=== PATIENT | female | born 1950 | race Caucasian/White ===

== ENCOUNTER → 2017-05-03 | Outpatient (CLI) | payer MEDICARE, OTHER ==
[2017-05-03 14:17] LABS: ABSOLUTE BASOPHILS # (AUTO) 0.1 10^3/uL (0.0-0.2); ABSOLUTE EOSINOPHILS # (AUTO) 0.2 10^3/uL (0.0-0.6); ABSOLUTE MONOCYTES (AUTO) 0.5 10^3/uL (0.1-1.4); ABSOLUTE NEUT (AUTO) 4.2 10^3/uL (1.7-8.2); BASOPHILS % (AUTO) 0.8 % (0-2); EOSINOPHILS % (AUTO) 2.9 % (0-6); HEMATOCRIT 35.8 % (36.0-47.0); HEMOGLOBIN 11.7 g/dL (12.0-15.5); HGB HCT DIFFERENCE -0.7; LYMPHOCYTES % (AUTO) 28.3 % (13-45); MEAN CORPUSCULAR HEMOGLOBIN 24.7 pg (27.0-33.4); MEAN CORPUSCULAR HGB CONC 32.8 g/dL (32.0-36.0); MEAN CORPUSCULAR VOLUME 75 fl (80-97); MONOCYTES % (AUTO) 7.8 % (3-13); RED BLOOD COUNT 4.76 10^6/uL (3.72-5.28); RED CELL DISTRIBUTION WIDTH 15.4 % (11.5-14.0); SEGMENTED NEUTROPHILS % (AUTO) 60.2 % (42-78)
[2017-05-03 14:19] LABS: APPEARANCE,URINE CLEAR; BILIRUBIN,URINE NEGATIVE (NEGATIVE); GLUCOSE, URINE NEGATIVE (NEGATIVE); KETONES,URINE NEGATIVE (NEGATIVE); LEUKOCYTE ESTERASE,URINE NEGATIVE (NEGATIVE); NITRITE,URINE NEGATIVE (NEGATIVE); PROTEIN,URINE NEGATIVE (NEGATIVE); URINE SPECIFIC GRAVITY 1.004; UROBILINOGEN,URINE NEGATIVE mg/dL (<2.0)
[2017-05-03 14:34] LABS: ALANINE AMINOTRANSFERASE 45 U/L (9-52); ALBUMIN 4.8 g/dL (3.5-5.0); ALKALINE PHOSPHATASE 91 U/L (38-126); ANION GAP 14 (5-19); ASPARTATE AMINO TRANSFERASE 26 U/L (14-36); BILIRUBIN,DIRECT 0.3 mg/dL (0.0-0.4); BILIRUBIN,TOTAL 0.4 mg/dL (0.2-1.3); BLOOD UREA NITROGEN 14 mg/dL (7-20); CALCIUM 9.7 mg/dL (8.4-10.2); CARBON DIOXIDE 25 mmol/L (22-30); CHLORIDE 105 mmol/L (98-107); GLUCOSE 117 mg/dL (75-110); POTASSIUM 4.6 mmol/L (3.6-5.0); SODIUM 143.9 mmol/L (137-145); TOTAL PROTEIN 8.5 g/dL (6.3-8.2)
[2017-05-03 15:14] LABS: ADD HIVPANEL? NO; HIV (1 AND 2) ANTIBODY NEGATIVE (NEGATIVE)
[2017-05-05 14:40] LABS: HGB SOLUBILITY RESULT Negative (Negative); IMMUNOGLOBULIN A 263 mg/dL (87-352); IMMUNOGLOBULIN G 1060 mg/dL (700-1600)
[2017-05-05 14:56] LABS: HGB A 98.3 % (94.0-98.0); HGB A2 1.7 % (0.7-3.1); IMMUNOGLOBULIN M 264 mg/dL (26-217)
[2017-05-06 14:41] LABS: ALPHA-1-GLOBULIN 0.2 g/dL (0.0-0.4); ALPHA-2-GLOBULIN 3 0.8 g/dL (0.4-1.0); BETA GLOBULIN 1.6 g/dL (0.7-1.3); GLOBULIN TTL 3.9 g/dL (2.2-3.9); IMMUNOGLOBULIN A 262 mg/dL (87-352); IMMUNOGLOBULIN G 1083 mg/dL (700-1600); IMMUNOGLOBULIN M 261 mg/dL (26-217); MONOCLONAL-SPIKE Not Observed g/dL (Not Observed); PROTEIN TOTAL SERUM 7.9 g/dL (6.0-8.5)
== END ==
LOC: OD 13:11
PROVIDERS: ATTEND Internal Medicine Nephrology
DX: D64.9 Anemia, unspecified (principal); E78.2 Mixed hyperlipidemia
CPT/HCPCS: 36415; 80053; 81001; 82784; 83020; 84443; 85025; 86320; 86701

== ENCOUNTER 2018-05-24 15:07 | Observation (INO) | payer MEDICARE, OTHER ==
[2018-05-24] MEDS ORDERED: KETOROLAC TROMETHAMINE INJ/PF 30 MG/1 ML SDV IV ONE (15:30)
[2018-05-24] MEDS ORDERED: ONDANSETRON HCL INJ/PF 4 MG/2 ML SDV IV ONE ×2 (15:30→19:26)
--- NOTE | 2018-05-24 15:32 | ER Document Report ---
ED Medical Screen (RME) - General Chief Complaint: Abdominal Pain >50 Stated Complaint: pain in right side Time Seen by Provider: 05/24/18 15:23 Notes: 68 years old male with a history of kidney stones presents today with sudden onset of right upper quadrant abdominal pain since 8:00. A total of 5 episodes of sharp pain C noted. Associated with nausea no vomiting. Pain also radiates to the back. On examination sharp tenderness over the right upper quadrant noted TRAVEL OUTSIDE OF THE [place] IN LAST 30 DAYS: No - Related Data Allergies/Adverse Reactions: No Known Allergies Allergy (Unverified 05/24/18 15:08) Past Medical History - Social History Frequency of alcohol use: None Drug Abuse: None Endocrine Medical History: Reports: Hx Diabetes Mellitus Type 2 Renal/ Medical History: Denies: Hx Peritoneal Dialysis Past Surgical History: Reports: Hx Hysterectomy Physical Exam - Vital signs Vitals: Temp Pulse Resp BP Pulse Ox 98.9 F 100 16 150/78 H 99 05/24/18 15:11 05/24/18 15:11 05/24/18 15:11 05/24/18 15:11 05/24/18 15:11 Course - Vital Signs Vital signs: Temp Pulse Resp BP Pulse Ox 98.9 F 100 16 150/78 H 99 05/24/18 15:11 05/24/18 15:11 05/24/18 15:11 05/24/18 15:11 05/24/18 15:11 Doctor's Discharge - Discharge Referrals: Paulette MAHMOOD MD [Primary Care Provider] - Follow up as needed
[2018-05-24 16:21] LABS: ABSOLUTE BASOPHILS # (AUTO) 0.1 10^3/uL (0.0-0.2); ABSOLUTE EOSINOPHILS # (AUTO) 0.1 10^3/uL (0.0-0.6); ABSOLUTE LYMPHOCYTES (AUTO) 1.6 10^3/uL (0.5-4.7); ABSOLUTE MONOCYTES (AUTO) 0.4 10^3/uL (0.1-1.4); ABSOLUTE NEUT (AUTO) 5.8 10^3/uL (1.7-8.2); BASOPHILS % (AUTO) 1.4 % (0-2); EOSINOPHILS % (AUTO) 0.9 % (0-6); HEMATOCRIT 41.4 % (36.0-47.0); HEMOGLOBIN 13.8 g/dL (12.0-15.5); LYMPHOCYTES % (AUTO) 19.9 % (13-45); MEAN CORPUSCULAR HGB CONC 33.4 g/dL (32.0-36.0); MEAN CORPUSCULAR VOLUME 84 fl (80-97); MONOCYTES % (AUTO) 4.6 % (3-13); PLATELET COUNT 232 10^3/uL (150-450); RED BLOOD COUNT 4.94 10^6/uL (3.72-5.28); RED CELL DISTRIBUTION WIDTH 14.8 % (11.5-14.0); SEGMENTED NEUTROPHILS % (AUTO) 73.2 % (42-78); TOTAL CELLS COUNTED % (AUTO) 100 %
[2018-05-24 16:38] LABS: ALANINE AMINOTRANSFERASE 39 U/L (9-52); ALKALINE PHOSPHATASE 77 U/L (38-126); ANION GAP 15 (5-19); ASPARTATE AMINO TRANSFERASE 34 U/L (14-36); BILIRUBIN,DIRECT 0.3 mg/dL (0.0-0.4); BILIRUBIN,TOTAL 0.7 mg/dL (0.2-1.3); BLOOD UREA NITROGEN 14 mg/dL (7-20); CALCIUM 10.1 mg/dL (8.4-10.2); CARBON DIOXIDE 23 mmol/L (22-30); CHLORIDE 104 mmol/L (98-107); GLUCOSE 156 mg/dL (75-110); LIPASE 139.9 U/L (23-300); POTASSIUM 4.6 mmol/L (3.6-5.0); SODIUM 142.3 mmol/L (137-145); TOTAL PROTEIN 8.9 g/dL (6.3-8.2)
--- NOTE | 2018-05-24 16:46 | RADIOLOGY REPORT (SQ) ---
EXAM DESCRIPTION: U/S ABDOMEN LIMITED W/O DOP COMPLETED DATE/TIME: 05/24/2018 4:26 pm REASON FOR STUDY: Right upper quadrant pain COMPARISON: None. TECHNIQUE: Dynamic and static grayscale images acquired of the abdomen and recorded on PACS. Peter bella selected color Doppler and spectral images recorded. LIMITATIONS: None. FINDINGS: PANCREAS: No masses. Visualized pancreatic duct normal caliber. LIVER: No masses. Echotexture normal. LIVER VASCULATURE: Normal directional flow of the main portal vein and hepatic veins. GALLBLADDER: Sludge is small stones. Trace of pericholecystic fluid. ULTRASOUND-DETECTED HIGUERA'S SIGN: Positive. INTRAHEPATIC DUCTS AND COMMON DUCT: No dilated ducts. Question sludge in the common bile duct. INFERIOR VENA CAVA: Normal flow. AORTA: No aneurysm. RIGHT KIDNEY: Normal size. Normal echogenicity. No solid or suspicious masses. No hydronephrosis. No calcifications. PERITONEAL AND RIGHT PLEURAL SPACE: No ascites or effusions. OTHER: No other significant findings. IMPRESSION: Sludge in the gallbladder with a positive Higuera's sign and pericholecystic fluid. Poss ible sludge in the common bile duct. Strongly suspect cholecystitis. TECHNICAL DOCUMENTATION: JOB ID: [id number] [employer]- All Rights Reserved Reading location - IP/workstation name: [email or web address]
[2018-05-24] MEDS ORDERED: CEFOXITIN INJ 1 GM VIAL IV ONE (18:14)
[2018-05-24] MEDS ORDERED: RINGERS SOLUTION,LACTATED 1,000 ML IV ONE (18:14)
--- NOTE | 2018-05-24 18:15 | ER Document Report ---
ED GI/ - General Chief Complaint: Abdominal Pain >50 Stated Complaint: pain in right side Time Seen by Provider: 05/24/18 15:23 Notes: This is a pleasant 68-year-old female to the emergency department for evaluation of right upper quadrant pain times 5 hours. Patient woke up this morning. Was scheduled to have a bladder stone removed by Dr. Victoria at [facility]. Had been fasting. Started having some worsening pain in the right upper quadrant. Called her surgeon who advised her to get this checked out at the local ER. Patient came here. Still having pain in the right upper quadrant. Very tender to touch. Radiates around to the right flank. No fever but did state that she had some chills and nausea with vomiting. TRAVEL OUTSIDE OF THE [place] IN LAST 30 DAYS: No - HPI Patient complains to provider of: Abdominal pain Timing/Duration: Gradual Quality of pain: Achy Severity at maximum: Moderate Severity in ED: Moderate Pain Level: 3 Vaginal bleeding (Compared to normal period): None - Related Data Allergies/Adverse Reactions: No Known Allergies Allergy (Unverified 05/24/18 15:08) Past Medical History - General Information source: Patient - Social History Smoking Status: Never Smoker Frequency of alcohol use: None Drug Abuse: None Lives with: Alone Family History: Reviewed & Not Pertinent Patient has suicidal ideation: No Patient has homicidal ideation: No Endocrine Medical History: Reports: Hx Diabetes Mellitus Type 2 Renal/ Medical History: Denies: Hx Peritoneal Dialysis Past Surgical History: Reports: Hx Hysterectomy Review of Systems - Review of Systems Notes: Constitutional: denies: Chills, Diaphoresis, Fever, Malaise, Weakness EENT: denies: Eye discharge, Blurred vision, Tearing, Double vision, Nose congestion, Nose discharge, Throat swelling, Mouth pain Cardiovascular: denies: Palpitations, Heart racing, Orthopnea, Dyspnea, Chest pain Respiratory: denies: Cough, Hurts to breathe, Wheezing, Shortness of breath Gastrointestinal: Complaining of pain in the right upper quadrant, nausea. No vomiting. No change in stools. No diarrhea or constipation. Genitourinary: denies: Burning, Dysuria, Discharge, Frequency, Flank pain, Hematuria Musculoskeletal: denies: Joint pain, Joint swelling, Muscle pain, Muscle stiffness, back pain Hematologic/Lymphatic: denies: Anemia, Easy bleeding, Easy bruising, Blood clots Neurological/Psychological: denies: Confusion, Dementia, Depression, Loss of consciousness Skin: No lesions, no masses, no skin breakdown, no abscesses Physical Exam - Vital signs Vitals: Temp Pulse Resp BP Pulse Ox 98.9 F 100 16 150/78 H 99 05/24/18 15:11 05/24/18 15:11 05/24/18 15:11 05/24/18 15:11 05/24/18 15:11 Interpretation: Normal - General General appearance: Appears well, Alert - HEENT Head: Normocephalic, Atraumatic Eyes: Normal Pupils: PERRL - Respiratory Respiratory status: No respiratory distress Chest status: Nontender Breath sounds: Normal Chest palpation: Normal - Cardiovascular Rhythm: Regular Heart sounds: Normal auscultation Murmur: No - Abdominal Inspection: Normal Distension: No distension Bowel sounds: Normal Tenderness: Tender - Tender to palpation in the right upper quadrant with guarding, Fournier's sign Organomegaly: No organomegaly - Back Back: Normal, Nontender - Extremities General upper extremity: Normal inspection, Nontender, Normal color, Normal ROM , Normal temperature General lower extremity: Normal inspection, Nontender, Normal color, Normal ROM , Normal temperature, Normal weight bearing. No: Kirsten's sign - Neurological Neuro grossly intact: Yes Cognition: Normal Orientation: AAOx4 Beatris Coma Scale Eye Opening: Spontaneous [place] Coma Scale Verbal: Oriented Beatris Coma Scale Motor: Obeys Commands [place] Coma Scale Total: 15 Speech: Normal Motor strength normal: LUE, RUE, LLE, RLE Sensory: Normal - Psychological Associated symptoms: Normal affect, Normal mood - Skin Skin Temperature: Warm Skin Moisture: Dry Skin Color: Normal Course - Re-evaluation Re-evalutation: 05/24/18 18:13 Ultrasound consistent with acute cholecystitis. Labs are fairly unremarkable. Consulted with Dr. Victoria at [facility] he does not feel comfortable doing his urological procedure until her gallbladder is taking care of. Will consult with our surgeon here shortly. Will start on Mefoxin at this time. 05/24/18 19:25 Surgeon has seen. Patient has acute cholecystitis. Started on antibiotics and pain medication. Will sit on her overnight and then operate on her in the morning. - Vital Signs Vital signs: Temp Pulse Resp BP Pulse Ox 98.9 F 100 16 150/78 H 99 05/24/18 15:11 05/24/18 15:11 05/24/18 15:11 05/24/18 15:11 05/24/18 15:11 - Laboratory Result Diagrams: 05/24/18 15:51 05/24/18 15:51 Laboratory results interpreted by me: 05/24/18 05/24/18 15:51 15:51 RDW 14.8 H Glucose 156 H Total Protein 8.9 H Discharge - Discharge Clinical Impression: Acute cholecystitis Condition: Good Disposition: ADMITTED INPATIENT Admitting Provider: Surgicalist Connor Meehan
[2018-05-24] MEDS ORDERED: MORPHINE SULFATE 10 MG/ML INJ IV ONE (19:26)
[2018-05-24] MEDS ORDERED: ONDANSETRON HCL INJ/PF 4 MG/2 ML SDV IV PRN (19:29)
[2018-05-24] MEDS ORDERED: GLUCAGON,HUMAN RECOMB 1 MG INJ SUBCUT PRN (19:29)
[2018-05-24] MEDS ORDERED: NORMAL SALINE 1000 ML 1,000 ML IV PRN (19:29)
[2018-05-24] MEDS ORDERED: DEXTROSE 50%-WATER 25 GM/50 ML DISP.SYRIN IV PRN ×4 (19:29→19:37)
[2018-05-24] MEDS ORDERED: DEXTROSE 40% GEL 15 GM TUBE PO PRN ×4 (19:29→19:37)
[2018-05-24] MEDS ORDERED: GLUCAGON,HUMAN RECOMB 1 MG INJ IM PRN (19:37)
[2018-05-24] MEDS ORDERED: INSULIN LISPRO 100 UNIT/ML 3 ML VIAL SUBCUT PRN (19:37)
--- NOTE | 2018-05-24 19:49 | PDOC H&P ---
History of Present Illness Admission Date/PCP: 05/24/18 18:29 Paulette MAHMOOD MD Patient complains of: Right upper quadrant pain, nausea, vomiting. History of Present Illness: ANA HAHN is a 68 year old female with a 1 day history of right upper quadrant pain, nausea, and vomiting. Her pain started this morning, and worsened steadily throughout the day. At its worst her pain was 10 out of 10. Her pain radiates to her right flank and back. At present, her pain is constant and does not length. Pain medication has made it somewhat better. Nothing makes it worse. Patient reports nausea and vomiting several times earlier today. Her nausea has improved after medications were given in the ER. She denies chest pain, shortness of breath, fevers, chills, melena, hematochezia, hematemesis, dizziness, orthostasis, fatigue, malaise, blurry vision, headache. Patient does have diabetes, but she denies a history of heart disease. Past Medical History Cardiac Medical History: Denies: Myocardial Infarction Endocrine Medical History: Reports: Diabetes Mellitus Type 2 Past Surgical History Past Surgical History: Reports: Hysterectomy, Orthopedic Surgery Social History Lives with: Alone Smoking Status: Never Smoker Hx Recreational Drug Use: No Hx Prescription Drug Abuse: No Family History Family History: Reviewed & Not Pertinent Parental Family History Reviewed: Yes Children Family History Reviewed: Yes Sibling(s) Family History Reviewed.: Yes Medication/Allergy Home Medications: Biotin 1,000 mcg PO DAILY 05/24/18 Glipizide [Glipizide Xl] 1 tab PO DAILY 05/24/18 Lisinopril [Prinivil 2.5 mg Tablet] 2.5 mg PO DAILY 05/24/18 Omeprazole [Omeprazole] 1 tab PO DAILY 05/24/18 Rosuvastatin Calcium [Crestor 5 mg Tablet] 5 mg PO DAILY PRN 05/24/18 Sertraline HCl 100 mg PO DAILY 05/24/18 Sitagliptin Phosphate [Januvia 50 mg Tablet] 50 mg PO BID 05/24/18 Allergies/Adverse Reactions: No Known Allergies Allergy (Unverified 05/24/18 15:08) Review of Systems Constitutional: ABSENT: chills, fatigue, fever(s), headache(s), weakness Eyes: ABSENT: visual disturbances Ears: ABSENT: hearing changes Nose, Mouth, and Throat: ABSENT: sore throat Cardiovascular: ABSENT: chest pain, palpitations Respiratory: ABSENT: cough, dyspnea Gastrointestinal: PRESENT: abdominal pain, nausea, vomiting. ABSENT: heartburn , hematemesis, hematochezia, melena Musculoskeletal: PRESENT: back pain Integumentary: ABSENT: pruritus, rash Neurological: ABSENT: confusion, convulsions, numbness, paresthesias, weakness Psychiatric: ABSENT: anxiety, depression Endocrine: ABSENT: cold intolerance, heat intolerance Hematologic/Lymphatic: ABSENT: easy bleeding, easy bruising Physical Exam Vital Signs: Temp Pulse Resp BP Pulse Ox 98.9 F 100 16 150/78 H 99 05/24/18 15:11 05/24/18 15:11 05/24/18 15:11 05/24/18 15:11 05/24/18 15:11 General appearance: PRESENT: mild distress - Abdominal pain Head exam: PRESENT: atraumatic, normocephalic Eye exam: PRESENT: EOMI, PERRLA. ABSENT: scleral icterus Mouth exam: PRESENT: moist, neck supple Teeth exam: ABSENT: poor dentation Neck exam: ABSENT: meningismus, tenderness, thyromegaly, tracheal deviation Respiratory exam: PRESENT: clear to auscultation uday, unlabored. ABSENT: chest wall tenderness, tachypnea, wheezes Cardiovascular exam: PRESENT: RRR Pulses: PRESENT: normal radial pulses Vascular exam: PRESENT: normal capillary refill. ABSENT: pallor GI/Abdominal exam: PRESENT: Fournier's sign, tenderness - Right upper quadrant Rectal exam: PRESENT: deferred Extremities exam: ABSENT: clubbing Musculoskeletal exam: ABSENT: deformity Neurological exam: PRESENT: alert, awake, oriented to person, oriented to place , oriented to time, oriented to situation, CN II-XII grossly intact. ABSENT: motor sensory deficit Psychiatric exam: ABSENT: agitated, anxious, depressed Skin exam: ABSENT: cyanosis, erythema, jaundice Results Impressions: Abdomen Ultrasound 05/24/18 15:30 IMPRESSION: Sludge in the gallbladder with a positive Fournier's sign and pericholecystic fluid. Possible sludge in the common bile duct. Strongly suspect cholecystitis. Assessment & Plan - Diagnosis (1) Acute cholecystitis Is this a current diagnosis for this admission?: Yes - Plan Summary Plan Summary: This is a 68-year-old female with right upper quadrant pain, gallbladder sludge , pericholecystic fluid, and a Fournier sign. I believe the patient is experiencing acute cholecystitis. I have admitted her to the hospital. I will start her on antibiotics. N.p.o. after midnight for possible surgery tomorrow. I have discussed cholecystectomy with the patient, and she is agreeable to the treatment plan. Risks/benefits discussed, informed consent obtained, and all questions answered.
[2018-05-25] MEDS ORDERED: CEFOXITIN INJ 1 GM VIAL ONE (01:25)
[2018-05-25] MEDS: CEFOXITIN SODIUM 2 GM in DEXTROSE 5%-WATER 100 ML IV SCH ×2 (01:56→06:58)
[2018-05-25 05:52] LABS: ALANINE AMINOTRANSFERASE 29 U/L (9-52); ALKALINE PHOSPHATASE 60 U/L (38-126); ANION GAP 12 (5-19); ASPARTATE AMINO TRANSFERASE 23 U/L (14-36); BILIRUBIN,DIRECT 0.2 mg/dL (0.0-0.4); BILIRUBIN,TOTAL 0.5 mg/dL (0.2-1.3); BLOOD UREA NITROGEN 15 mg/dL (7-20); CALCIUM 9.5 mg/dL (8.4-10.2); CARBON DIOXIDE 24 mmol/L (22-30); CHLORIDE 106 mmol/L (98-107); GLUCOSE 102 mg/dL (75-110); POTASSIUM 4.6 mmol/L (3.6-5.0); SODIUM 142.1 mmol/L (137-145); TOTAL PROTEIN 6.9 g/dL (6.3-8.2)
[2018-05-25] MEDS ORDERED: BUPIVACAINE HCL 0.25 % INJ/PF (2.5 MG/1 ML) 30 ML VIAL ONE (09:17)
[2018-05-25] MEDS ORDERED: MIDAZOLAM 2 MG/2 ML INJ ONE (09:26)
[2018-05-25] MEDS ORDERED: FENTANYL CITRATE INJ/PF 250 MCG/5 ML AMPULE ONE (09:26)
[2018-05-25] MEDS ORDERED: EPHEDRINE SULFATE INJ 50 MG/1 ML AMPULE ONE (09:26)
[2018-05-25] MEDS ORDERED: DEXMEDETOMIDINE INJ 80 MCG/20 ML VIAL IV ONE (09:26)
[2018-05-25] MEDS ORDERED: PROPOFOL INJ 200 MG/20 ML VIAL IV ONE (09:27)
[2018-05-25] MEDS ORDERED: ACETAMINOPHEN 1,000 MG/100 ML RTUPB IV ONE (09:27)
--- NOTE | 2018-05-25 09:35 | EKG REPORT ---
SEVERITY:- NORMAL ECG - SINUS RHYTHM : Confirmed by: Rosmery Lima 25-May-2018 09:34:23
--- NOTE | 2018-05-25 09:46 | PDOC PROGRESS REPORT ---
Subjective Progress Note for:: 05/25/18 Subjective:: Feels better. Less abdominal pain. Reason For Visit: CHOLECYSTITIS Physical Exam Vital Signs: Temp Pulse Resp BP Pulse Ox 98.2 F 70 14 113/60 96 05/25/18 08:02 05/25/18 08:02 05/25/18 08:02 05/25/18 08:02 05/25/18 08:02 Intake & Output 05/24/18 05/25/18 05/26/18 06:59 06:59 06:59 Intake Total 360 100 Balance 360 100 Weight 70.6 kg General appearance: PRESENT: no acute distress, cooperative Respiratory exam: PRESENT: clear to auscultation uday Cardiovascular exam: PRESENT: RRR GI/Abdominal exam: PRESENT: other - Soft, nondistended, tender to palpation in the right upper quadrant. Extremities exam: PRESENT: other - No swelling and no tenderness Results Laboratory Results: 05/25/18 04:31 05/25/18 04:31 Sodium 142.1 Potassium 4.6 Chloride 106 Carbon Dioxide 24 Anion Gap 12 BUN 15 Creatinine 0.87 Est GFR ( Amer) > 60 Est GFR (Non-Af Amer) > 60 Glucose 102 Calcium 9.5 Total Bilirubin 0.5 AST 23 ALT 29 Alkaline Phosphatase 60 Total Protein 6.9 Albumin 4.0 Impressions: Abdomen Ultrasound 05/24/18 15:30 IMPRESSION: Sludge in the gallbladder with a positive Fournier's sign and pericholecystic fluid. Possible sludge in the common bile duct. Strongly suspect cholecystitis. Assessment & Plan - Diagnosis (1) Acute cholecystitis Is this a current diagnosis for this admission?: Yes Plan: Symptoms have improved but she is cut off saw tender metal in the right upper quadrant. Diagnosis is still consistent with acute cholecystitis. Will proceed with laparoscopic cholecystectomy. I have discussed with the patient the risk and benefits of the procedure including risk of bile duct injury, intestinal injury , bleeding, infection, postcholecystectomy diarrhea and the possibility of conversion to an open procedure. Patient understands and agrees to proceed.
[2018-05-25] MEDS ORDERED: PROMETHAZINE HCL INJ 25 MG/1 ML VIAL IV PRN ×2 (11:10)
[2018-05-25] MEDS ORDERED: FENTANYL CITRATE INJ/PF 100 MCG/2 ML AMPUL IV PRN ×3 (11:10)
[2018-05-25] MEDS ORDERED: MEPERIDINE HCL/PF INJ 25 MG/1 ML DISP.SYRIN IV PRN (11:10)
[2018-05-25] MEDS ORDERED: MORPHINE SULFATE 10 MG/ML INJ IV PRN (11:10)
[2018-05-25] MEDS ORDERED: DIPHENHYDRAMINE HCL 50 MG/ML VIAL IV PRN (11:10)
[2018-05-25] MEDS ORDERED: OXYCODONE-ACETAMINOPHEN 5-325 MG TABLET PO PRN (11:17)
--- NOTE | 2018-05-25 11:22 | Operative Report ---
Operative Report DATE OF SURGERY: 05/25/18 PREOPERATIVE DIAGNOSIS: Acute cholecystitis POSTOPERATIVE DIAGNOSIS: Acute cholecystitis OPERATION: Laparoscopic cholecystectomy SURGEON: MARIA T LIRIANO ANESTHESIA: GA TISSUE REMOVED OR ALTERED: Gallbladder COMPLICATIONS: None ESTIMATED BLOOD LOSS: Minimal INTRAOPERATIVE FINDINGS: Distended gallbladder with mildly edematous gallbladder wall. PROCEDURE: Informed consent was obtained. Patient was brought to the operating room placed operating table in supine position. After satisfactory induction of general anesthesia, patient's abdomen was prepped and draped in usual sterile fashion. A supraumbilical midline incision was made and dissection carried down to the fascia the peritoneal cavity entered without difficulty. Aguayo trocar was inserted. Pneumoperitoneum produced good patient toleration. 5 mm trocar was placed in the subxiphoid location.Two 5 mm trochars were placed in the right subcostal location. The gallbladder appeared distended and its wall appeared mildly edematous. The gallbladder was grasped and retracted cephalad over the dome of the liver. The infundibulum of the gallbladder was grasped retracted laterally and inferiorly thus exposing calot's triangle. The cystic duct gallbladder junction was clearly identified and the cystic duct was clipped and divided. Cystic artery was likewise taken. The gallbladder was taken off the gallbladder bed using the hook electrocautery technique. The gallbladder was removed with an Endobag through the Aguayo trocar site fascial defect. Hemostasis appeared excellent. All trochars were removed under the direct vision a laparoscope to ensure hemostasis. The Aguayo trocar site fascial defect was closed with interrupted Vicryl sutures. All skin incisions were closed with subcuticular interrupted Monocryl sutures. Marcaine was injected at the port sites. Patient tolerated procedure well no apparent complications and was taken to the recovery area in stable condition.
[2018-05-25] MEDS ORDERED: ONDANSETRON HCL INJ/PF 4 MG/2 ML SDV ONE (13:52)
[2018-05-25] MEDS ORDERED: KETOROLAC TROMETHAMINE 60 MG/2 ML SDV ONE (13:52)
[2018-05-25] MEDS ORDERED: GLYCOPYRROLATE 1 MG/5 ML SYRINGE ONE (13:52)
[2018-05-25] MEDS ORDERED: ROCURONIUM BROMIDE INJ 50 MG/5 ML VIAL IV ONE (13:52)
[2018-05-25] MEDS ORDERED: METOCLOPRAMIDE HCL INJ/PF 10 MG/2 ML SDV ONE (13:52)
[2018-05-25] MEDS ORDERED: SUCCINYLCHOLINE CHLORIDE INJ 200 MG/10 ML VIAL ONE (13:52)
[2018-05-25] MEDS ORDERED: NEOSTIGMINE METHYLSULFATE 10 MG/10 ML VIAL ONE (13:52)
--- NOTE | 2018-05-25 14:03 | PDOC PROGRESS REPORT ---
Subjective Progress Note for:: 05/25/18 Subjective:: Feels well. Feels better than before surgery. Reason For Visit: CHOLECYSTITIS Physical Exam Vital Signs: Temp Pulse Resp BP Pulse Ox 97.4 F 72 12 109/62 97 05/25/18 11:24 05/25/18 12:08 05/25/18 12:08 05/25/18 12:08 05/25/18 12:08 Intake & Output 05/24/18 05/25/18 05/26/18 06:59 06:59 06:59 Intake Total 360 1800 Output Total 5 Balance 360 1795 Weight 70.6 kg General appearance: PRESENT: no acute distress, cooperative Respiratory exam: PRESENT: clear to auscultation uday Cardiovascular exam: PRESENT: RRR GI/Abdominal exam: PRESENT: other - Soft, nondistended, mild appropriate tenderness. Results Laboratory Results: 05/25/18 04:31 05/25/18 04:31 Sodium 142.1 Potassium 4.6 Chloride 106 Carbon Dioxide 24 Anion Gap 12 BUN 15 Creatinine 0.87 Est GFR ( Amer) > 60 Est GFR (Non-Af Amer) > 60 Glucose 102 Calcium 9.5 Total Bilirubin 0.5 AST 23 ALT 29 Alkaline Phosphatase 60 Total Protein 6.9 Albumin 4.0 Impressions: Abdomen Ultrasound 05/24/18 15:30 IMPRESSION: Sludge in the gallbladder with a positive Fournier's sign and pericholecystic fluid. Possible sludge in the common bile duct. Strongly suspect cholecystitis. Assessment & Plan - Diagnosis (1) Acute cholecystitis Is this a current diagnosis for this admission?: Yes Plan: Doing well after laparoscopic cholecystectomy. Will discharge patient home.
--- NOTE | 2018-05-25 14:22 | DISCHARGE SUMMARY E ---
Discharge Summary NAME: ANA HAHN : 1950 AGE: 68Y ADMITTED: 05/24/2018 DISCHARGED: 05/25/2018 DISCHARGE DIAGNOSIS: Acute cholecystitis. PROCEDURE PERFORMED DURING HOSPITALIZATION: Laparoscopic cholecystectomy performed by Dr. Belén Liriano on 05/25/2018. HOSPITAL COURSE: Patient underwent the above-mentioned procedure. She did well postoperatively. She was tolerating a liquid diet well and was feeling better after the surgery. Her exam was good. Patient has now been discharged to home in good condition. She will follow up at [facility] in 2 weeks. She is to call for any problems. She may follow a diabetic diet at home. She is to stay active but avoid strenuous activity. She may resume all of her home medications. ADDITIONAL MEDICATIONS: Percocet 1 p.o. q. 4 hours p.r.n. pain. DICTATING PHYSICIAN: BELÉN LIRIANO M.D. [id number] PHY#: [id number] ID: [id number] JOB#: [id number] ACCT: [id number] cc:BELÉN CASTRO M.D. >
[2018-05-25 15:22] VITALS: BP 116/56
== END 2018-05-25 15:43 | disposition home or self-care (01) ==
LOC: ER 15:07 → INTOOBSV 18:29 → EH 18:29 → 2S 21:03
PROVIDERS: ATTEND Surgery
PROC: 0FT44ZZ Resection of Gallbladder, Percutaneous Endoscopic Approach (ICD-10-PCS; principal; 2018-05-25 10:00)
DX: K81.1 Chronic cholecystitis (principal); E11.9 Type 2 diabetes mellitus without complications; Z90.710 Acquired absence of both cervix and uterus; Z79.899 Other long term (current) drug therapy; Z79.84 Long term (current) use of oral hypoglycemic drugs; Z87.442 Personal history of urinary calculi
CPT/HCPCS: 99285; 96374; 96375; 36415 ×2; 82962 ×2; 83690; 85025; 80053 ×2; 88304 ×2; 76705; 93005; 93010; 47562; G0378 ×2; J2250; J3490 ×3; J0694 ×2; J1885 ×2; J3010; J2765; J2270; J0330; J2405 ×2; J7030; J7120; J2704; J0131; 790

== ENCOUNTER 2018-09-22 19:32 | Observation (INO) | payer MEDICARE, OTHER ==
--- NOTE | 2018-09-22 20:03 | ER Document Report ---
ED Medical Screen (RME) - General Chief Complaint: Altered Mental Status Stated Complaint: ALTERED MENTAL STATUS Time Seen by Provider: 09/22/18 19:58 Primary Care Provider: Paulette MAHMOOD MD [Primary Care Provider] - Follow up as needed Notes: Patient is a 68-year-old female who underwent a cystoscopy today and at [facility]. Daughter reports that she passed out on the way home, when she got home she slept for approximately 6 hours. When she woke up she has been alternating between hallucinating, laughing spells, crying, thinking she is dying. Daughter reports patient is normally very coherent at her baseline. I have greeted and performed a rapid initial assessment of this patient. A comprehensive ED assessment and evaluation of the patient, analysis of test results and completion of the medical decision making process will be conducted by additional ED providers. Dictation of this chart was performed using voice recognition software; therefore, there may be some unintended grammatical err ors. TRAVEL OUTSIDE OF THE [place] IN LAST 30 DAYS: No - Related Data Allergies/Adverse Reactions: No Known Allergies Allergy (Unverified 05/24/18 15:08) Past Medical History - Past Medical History Cardiac Medical History: Denies: Hx Heart Attack Endocrine Medical History: Reports: Hx Diabetes Mellitus Type 2 Renal/ Medical History: Denies: Hx Peritoneal Dialysis Past Surgical History: Reports: Hx Hysterectomy, Hx Orthopedic Surgery Physical Exam - Vital signs Vitals: Temp Pulse Resp BP Pulse Ox 98.6 F 82 20 149/70 H 97 09/22/18 19:39 09/22/18 19:39 09/22/18 19:39 09/22/18 19:39 09/22/18 19:39 Course - Vital Signs Vital signs: Temp Pulse Resp BP Pulse Ox 98.6 F 82 20 149/70 H 97 09/22/18 19:39 09/22/18 19:39 09/22/18 19:39 09/22/18 19:39 09/22/18 19:39 Doctor's Discharge - Discharge Referrals: Paulette MAHMOOD MD [Primary Care Provider] - Follow up as needed
[2018-09-22 21:11] LABS: ABSOLUTE BASOPHILS # (AUTO) 0.1 10^3/uL (0.0-0.2); ABSOLUTE EOSINOPHILS # (AUTO) 0.1 10^3/uL (0.0-0.6); ABSOLUTE MONOCYTES (AUTO) 0.4 10^3/uL (0.1-1.4); ABSOLUTE NEUT (AUTO) 6.2 10^3/uL (1.7-8.2); BASOPHILS % (AUTO) 0.6 % (0-2); EOSINOPHILS % (AUTO) 1.7 % (0-6); HEMOGLOBIN 13.8 g/dL (12.0-15.5); LYMPHOCYTES % (AUTO) 22.7 % (13-45); MEAN CORPUSCULAR HEMOGLOBIN 27.8 pg (27.0-33.4); MEAN CORPUSCULAR HGB CONC 33.6 g/dL (32.0-36.0); MEAN CORPUSCULAR VOLUME 83 fl (80-97); MONOCYTES % (AUTO) 4.8 % (3-13); PLATELET COUNT 222 10^3/uL (150-450); RED BLOOD COUNT 4.97 10^6/uL (3.72-5.28); RED CELL DISTRIBUTION WIDTH 15.4 % (11.5-14.0); SEGMENTED NEUTROPHILS % (AUTO) 70.2 % (42-78); TOTAL CELLS COUNTED % (AUTO) 100 %; WHITE BLOOD COUNT 8.8 10^3/uL (4.0-10.5)
[2018-09-22 21:27] LABS: ALANINE AMINOTRANSFERASE 57 U/L (9-52); ALBUMIN 4.3 g/dL (3.5-5.0); ALKALINE PHOSPHATASE 78 U/L (38-126); ANION GAP 11 (5-19); ASPARTATE AMINO TRANSFERASE 44 U/L (14-36); BILIRUBIN,DIRECT 0.2 mg/dL (0.0-0.4); BILIRUBIN,TOTAL 0.6 mg/dL (0.2-1.3); BLOOD UREA NITROGEN 16 mg/dL (7-20); CARBON DIOXIDE 22 mmol/L (22-30); CHLORIDE 107 mmol/L (98-107); GLUCOSE 111 mg/dL (75-110); POTASSIUM 4.3 mmol/L (3.6-5.0); SODIUM 139.5 mmol/L (137-145); TOTAL PROTEIN 7.9 g/dL (6.3-8.2)
[2018-09-22] MEDS ORDERED: NALOXONE HCL INJ/PF 0.4 MG/1 ML SDV IV ONE (22:50)
[2018-09-22] MEDS ORDERED: NORMAL SALINE 1000 ML 1,000 ML IV ONE (22:53)
--- NOTE | 2018-09-22 22:53 | ER Document Report ---
ED General - General Chief Complaint: Altered Mental Status Stated Complaint: ALTERED MENTAL STATUS Time Seen by Provider: 09/22/18 19:58 Primary Care Provider: Paulette MAHMOOD MD [ACTIVE STAFF] - Follow up as needed TRAVEL OUTSIDE OF THE [place] IN LAST 30 DAYS: No - HPI Notes: Patient is a 68-year-old female that presents to the emergency department for chief complaint of altered mental status. Patient had a cystoscopy performed at [facility] ([facility] at 930 this mornin g. She reports being given Lyrica, Celexa, IV Tylenol, and Versed prior to her procedure. Patient's daughter states she was under general anesthesia for about 45 minutes and was intubated with an LMA. Patient felt very dizzy after the procedure and fell asleep in the car on the way home. Patient's daughter states after getting home she was sleeping for about 6 hours. When she woke her up patient was hallucinating. She was speaking to people not present in the room. She was describing that her head felt like the size of the world. Patient states that she feels like they drugged her. She denies any pain, fever, shortness of breath, nausea/vomiting. Patient denies history of anesthesia reactions in the past. Past Medical History: Reviewed in chart Past Surgical History: Cystoscopy Social History: Denies drugs alcohol and tobacco Family History: Reviewed and noncontributory for presenting illness Allergies: Reviewed, see documented allergy list. REVIEW OF SYSTEMS: CONSTITUTIONAL : No fever No chills No diaphoresis No recent illness EENT: No vision changes No congestion No sore throat CARDIOVASCULAR: No chest pain No palpitations RESPIRATORY: No shortness of breath No cough No difficulty breathing GASTROINTESTINAL: No abdominal pain No nausea No vomiting No diarrhea GENITOURINARY: No dysuria No hematuria No difficulty urinating MUSCULOSKELETAL: No back pain No leg pain No arm pain SKIN: No rashes No lesions LYMPHATIC: No swollen, enlarged glands. NEUROLOGICAL: No lightheadedness No headache No weakness No paresthesias PSYCHIATRIC: No anxiety No depression Hallucinations PHYSICAL EXAMINATION: Vital signs reviewed, nursing noted reviewed. GENERAL: Appears intoxicated, somnolent, well-nourished and in no acute distress. HEAD: Atraumatic, normocephalic. EYES: Eyes appear normal, extraocular movements intact, sclera anicteric, conjunctiva are normal. ENT: nares patent, oropharynx clear without exudates. Moist mucous membranes. NECK: Normal range of motion, supple without lymphadenopathy LUNGS: Breath sounds clear to auscultation bilaterally and equal. No wheezes rales or rhonchi. HEART: Regular rate and rhythm without murmurs ABDOMEN: Soft, nontender, normoactive bowel sounds. No rebound, guarding, or rigidity. No masses appreciated. EXTREMITIES: Nontender, good range of motion, no pitting or edema. NEUROLOGICAL: No focal neurological deficits. Moves all extremities spontaneously Motor and sensory grossly intact on exam. PSYCH: Normal mood, normal affect. SKIN: Warm, Dry, normal turgor, no rashes or lesions noted on exposed skin - Related Data Allergies/Adverse Reactions: No Known Allergies Allergy (Unverified 05/24/18 15:08) Past Medical History - Social History Smoking Status: Never Smoker Chew tobacco use (# tins/day): No Frequency of alcohol use: None Drug Abuse: None Family History: Reviewed & Not Pertinent Patient has suicidal ideation: No Patient has homicidal ideation: No - Past Medical History Cardiac Medical History: Denies: Hx Heart Attack Endocrine Medical History: Reports: Hx Diabetes Mellitus Type 2 Renal/ Medical History: Denies: Hx Peritoneal Dialysis Past Surgical History: Reports: Hx Hysterectomy, Hx Orthopedic Surgery Physical Exam - Vital signs Vitals: Temp Pulse Resp BP Pulse Ox 98.6 F 82 20 149/70 H 97 09/22/18 19:39 09/22/18 19:39 09/22/18 19:39 09/22/18 19:39 09/22/18 19:39 Course - Re-evaluation Re-evalutation: 09/23/18 00:04 Vitals reviewed. Nursing notes reviewed. Patient was somnolent intermittently during my conversation but then would wake up and speak appropriately. She did at times seem to stare off into the distance. She was very emotionally labile. Patient had episodes of crying and then shortly after was laughing hysterically. After Narcan her symptoms were unchanged. Patient's tox screen is positive for benzos and opiates consistent with her recent procedure. Her alcohol level is 0. Aspirin and Tylenol levels are normal. Patient has no acute anemia or signs of electrolyte derangement. Patient is still altered and not safe for discharge home. She will be admitted to the hospital for observation. Patient's care discussed with Dr. Corrales who accepted admission Laboratory 09/22/18 09/22/18 09/22/18 20:29 20:40 20:40 WBC 8.8 RBC 4.97 Hgb 13.8 Hct 41.0 MCV 83 MCH 27.8 MCHC 33.6 RDW 15.4 H Plt Count 222 Seg Neutrophils % 70.2 Lymphocytes % 22.7 Monocytes % 4.8 Eosinophils % 1.7 Basophils % 0.6 Absolute Neutrophils 6.2 Absolute Lymphocytes 2.0 Absolute Monocytes 0.4 Absolute Eosinophils 0.1 Absolute Basophils 0.1 Sodium 139.5 Potassium 4.3 Chloride 107 Carbon Dioxide 22 Anion Gap 11 BUN 16 Creatinine 0.79 Est GFR ( Amer) > 60 Est GFR (Non-Af Amer) > 60 Glucose 111 H POC Glucose 108 Calcium 10.0 Total Bilirubin 0.6 Direct Bilirubin 0.2 Neonat Total Bilirubin Not Reportable Neonat Direct Bilirubin Not Reportable Neonat Indirect Bili Not Reportable AST 44 H ALT 57 H Alkaline Phosphatase 78 Total Protein 7.9 Albumin 4.3 Urine Color Urine Appearance Urine pH Ur Specific [place] Urine Protein Urine Glucose (UA) Urine Ketones Urine Blood Urine Nitrite Urine Bilirubin Urine Urobilinogen Ur Leukocyte Esterase Urine WBC (Auto) Urine RBC (Auto) Urine Bacteria (Auto) Squamous Epi Cells Auto Urine Mucus (Auto) Urine Ascorbic Acid Salicylates Urine Opiates Screen Urine Methadone Screen Acetaminophen Ur Barbiturates Screen Ur Phencyclidine Scrn Ur Amphetamines Screen U Benzodiazepines Scrn Urine Cocaine Screen U Marijuana (THC) Screen Serum Alcohol 09/22/18 09/22/18 09/22/18 20:40 23:12 23:12 WBC RBC Hgb Hct MCV MCH MCHC RDW Plt Count Seg Neutrophils % Lymphocytes % Monocytes % Eosinophils % Basophils % Absolute Neutrophils Absolute Lymphocytes Absolute Monocytes Absolute Eosinophils Absolute Basophils Sodium Potassium Chloride Carbon Dioxide Anion Gap BUN Creatinine Est GFR ( Amer) Est GFR (Non-Af Amer) Glucose POC Glucose Calcium Total Bilirubin Direct Bilirubin Neonat Total Bilirubin Neonat Direct Bilirubin Neonat Indirect Bili AST ALT Alkaline Phosphatase Total Protein Albumin Urine Color YELLOW Urine Appearance SLIGHTLY-CLOUDY Urine pH 6.0 Ur Specific [place] 1.009 Urine Protein NEGATIVE Urine Glucose (UA) NEGATIVE Urine Ketones NEGATIVE Urine Blood LARGE H Urine Nitrite NEGATIVE Urine Bilirubin NEGATIVE Urine Urobilinogen NEGATIVE Ur Leukocyte Esterase NEGATIVE Urine WBC (Auto) 3 Urine RBC (Auto) 24 Urine Bacteria (Auto) TRACE Squamous Epi Cells Auto <1 Urine Mucus (Auto) RARE Urine Ascorbic Acid NEGATIVE Salicylates < 1.0 L Urine Opiates Screen UNCONFIRMED POSITIVE Urine Methadone Screen NEGATIVE Acetaminophen < 10 L Ur Barbiturates Screen NEGATIVE Ur Phencyclidine Scrn NEGATIVE Ur Amphetamines Screen NEGATIVE U Benzodiazepines Scrn UNCONFIRMED POSITIVE Urine Cocaine Screen NEGATIVE U Marijuana (THC) Screen NEGATIVE Serum Alcohol < 10 - Vital Signs Vital signs: Temp Pulse Resp BP Pulse Ox 98.6 F 82 20 149/70 H 97 09/22/18 19:39 09/22/18 19:39 09/22/18 19:39 09/22/18 19:39 09/22/18 19:39 - Laboratory Result Diagrams: 09/22/18 20:40 09/22/18 20:40 Laboratory results interpreted by me: 09/22/18 09/22/18 09/22/18 20:40 20:40 20:40 RDW 15.4 H Glucose 111 H AST 44 H ALT 57 H Urine Blood Salicylates < 1.0 L Acetaminophen < 10 L 09/22/18 23:12 RDW Glucose AST ALT Urine Blood LARGE H Salicylates Acetaminophen Discharge - Discharge Clinical Impression: Medication reaction Qualifiers: Encounter type: initial encounter Qualified Code(s): T50.905A - Adverse effect of unspecified drugs, medicaments and biological substances, initial encounter Condition: Stable Disposition: ADMITTED OBSERVATION Admitting Provider: Antoni (Hospitalist) Unit Admitted: Telemetry
[2018-09-22 23:10] LABS: ACETAMINOPHEN < 10 ug/mL (10-30); ALCOHOL < 10 mg/dL (NONE DETECTED); SALICYLATE < 1.0 mg/dL (2.0-20.0)
[2018-09-22 23:31] LABS: APPEARANCE,URINE SLIGHTLY-CLOUDY; BILIRUBIN,URINE NEGATIVE (NEGATIVE); COLOR,URINE YELLOW; GLUCOSE, URINE NEGATIVE (NEGATIVE); KETONES,URINE NEGATIVE (NEGATIVE); LEUKOCYTE ESTERASE,URINE NEGATIVE (NEGATIVE); NITRITE,URINE NEGATIVE (NEGATIVE); PROTEIN,URINE NEGATIVE (NEGATIVE); URINE SPECIFIC GRAVITY 1.009; UROBILINOGEN,URINE NEGATIVE mg/dL (<2.0)
[2018-09-23] LABS: URINE AMPHETAMINES SCREEN NEGATIVE; URINE BARBITURATES SCREEN NEGATIVE; URINE BENZODIAZEPINES SCREEN UNCONFIRMED POSITIVE; URINE COCAINE SCREEN NEGATIVE; URINE MARIJUANA (THC) SCREEN NEGATIVE; URINE METHADONE SCREEN NEGATIVE; URINE PHENCYCLIDINE SCREEN NEGATIVE
[2018-09-23] MEDS ORDERED: DEXTROSE 40% GEL 15 GM TUBE PO PRN ×2 (01:54)
[2018-09-23] MEDS ORDERED: DEXTROSE 50%-WATER 25 GM/50 ML DISP.SYRIN IV PRN ×2 (01:54)
[2018-09-23] MEDS ORDERED: GLUCAGON,HUMAN RECOMB 1 MG INJ IM PRN (01:54)
--- NOTE | 2018-09-23 02:51 | PDOC H&P ---
History of Present Illness Admission Date/PCP: 09/23/18 00:21 NICHOLAS FUNES PA-C Patient complains of: confusion after procedure today History of Present Illness: ANA HAHN is a 68 year old woman who had a cystoscopy today at [facility] for bladder stones. She was very groggy today afterwards and was sent home with her daughter. Daughter states she was confused, disinhibited with laughing and crying inappropriately, staring and momentarily non responsive, never with respiratory distress, no obvious weakness or slurred speech. CT head ordered in ED but pt declined study, she is improving but secondary to an acute encephalopathy is admitted under obs for safety. Past Medical History Cardiac Medical History: Reports: Hyperlipidema Denies: Myocardial Infarction Pulmonary Medical History: Denies: Chronic Obstructive Pulmonary Disease (COPD), Respiratory Failure EENT Medical History: Reports: None Neurological Medical History: Denies: Ischemic CVA, Seizures Endocrine Medical History: Reports: Diabetes Mellitus Type 2 Renal/ Medical History: Reports: Other - bladder stones, complications related to bladder sling x 2 Denies: Chronic Kidney Disease Malignancy Medical History: Reports: None GI Medical History: Denies: Gastroesophageal Reflux Disease Musculoskeltal Medical History: Denies: Arthritis, Fibromyalgia Skin Medical History: Denies: Eczema, Psoriasis Psychiatric Medical History: Reports: Other - anxiety, situational Denies: Substance Abuse, Tobacco Dependency Traumatic Medical History: Reports: None Hematology: Denies: Anemia, Bleeding Tendencies Infectious Medical History: Reports: None Past Surgical History Past Surgical History: Reports: Cholecystectomy, Hysterectomy, Orthopedic Surgery, Other - cystoscopies Social History Information Source: Patient, Emergency Med Personnel Occupation: medical insurance customer service specialist Lives with: Alone Smoking Status: Never Smoker Frequency of Alcohol Use: Rare Hx Recreational Drug Use: No Drugs: None Hx Prescription Drug Abuse: No - Advance Directive Resuscitation Status: Full Code Surrogate healthcare decision maker:: daughter is healthcare proxy, Fernanda Morrison [phone] Family History Parental Family History Reviewed: Yes Children Family History Reviewed: Yes - daughter with autoimmune disorder Sibling(s) Family History Reviewed.: Yes Medication/Allergy Home Medications: Biotin [Biotin 1 mg Tablet] 1 tab PO DAILY PRN 09/22/18 Glipizide [Glipizide Xl] 2.5 mg PO DAILY 09/22/18 Lisinopril [Prinivil] 5 mg PO DAILY 09/22/18 Omeprazole 20 mg PO DAILY 09/22/18 Sertraline HCl [Zoloft 50 mg Tablet] 50 mg PO DAILY 09/22/18 Sitagliptin Phosphate [Januvia 50 mg Tablet] 50 mg PO BID 09/22/18 Sitagliptin Phosphate [Januvia 50 mg Tablet] 100 mg PO DAILY 09/22/18 Allergies/Adverse Reactions: No Known Allergies Allergy (Unverified 05/24/18 15:08) Review of Systems Constitutional: ABSENT: chills, fever(s), headache(s) Eyes: ABSENT: visual disturbances Ears: ABSENT: hearing changes Nose, Mouth, and Throat: ABSENT: mouth pain, sore throat Cardiovascular: ABSENT: chest pain, edema Respiratory: ABSENT: dyspnea Gastrointestinal: ABSENT: nausea, vomiting Genitourinary: PRESENT: hematuria. ABSENT: difficulty urinating, dysuria Musculoskeletal: ABSENT: back pain Integumentary: ABSENT: diaphoresis, pruritus Neurological: PRESENT: confusion. ABSENT: abnormal gait, abnormal movements, frequent falls Psychiatric: PRESENT: anxiety. ABSENT: depression Endocrine: PRESENT: other - well controlled DM Hematologic/Lymphatic: ABSENT: easy bleeding, easy bruising Physical Exam Vital Signs: Temp Pulse Resp BP Pulse Ox 98.6 F 77 20 116/70 97 09/22/18 19:39 09/22/18 22:36 09/22/18 22:36 09/22/18 22:36 09/22/18 22:36 Intake & Output 09/21/18 09/22/18 09/23/18 06:59 06:59 06:59 Intake Total 1000 Balance 1000 Weight 72.9 kg General appearance: PRESENT: no acute distress, cooperative, well-developed, well-nourished Head exam: PRESENT: atraumatic, normocephalic Eye exam: PRESENT: EOMI. ABSENT: conjunctival injection, nystagmus, scleral icterus Mouth exam: PRESENT: neck supple, tongue midline Teeth exam: ABSENT: poor dentation Respiratory exam: PRESENT: clear to auscultation uday, unlabored. ABSENT: rales, rhonchi Cardiovascular exam: PRESENT: RRR. ABSENT: systolic murmur Pulses: PRESENT: normal radial pulses Vascular exam: PRESENT: normal capillary refill GI/Abdominal exam: PRESENT: normal bowel sounds, soft. ABSENT: distended, guarding, tenderness Rectal exam: PRESENT: deferred Gentrourinary exam: ABSENT: indwelling catheter Extremities exam: ABSENT: pedal edema Musculoskeletal exam: PRESENT: ambulatory, normal inspection. ABSENT: deformity Neurological exam: PRESENT: alert, awake, oriented to person, oriented to place, oriented to situation, CN II-XII grossly intact, normal gait. ABSENT: aphasic Psychiatric exam: PRESENT: appropriate affect. ABSENT: anxious, depressed Focused psych exam: ABSENT: flight of ideas, internal stimuli, pressured speech Skin exam: PRESENT: dry, intact, warm Results Laboratory Results: 09/22/18 20:40 09/22/18 20:40 09/22/18 09/22/18 09/22/18 20:40 20:40 23:12 WBC 8.8 RBC 4.97 Hgb 13.8 Hct 41.0 MCV 83 MCH 27.8 MCHC 33.6 RDW 15.4 H Plt Count 222 Seg Neutrophils % 70.2 Lymphocytes % 22.7 Monocytes % 4.8 Eosinophils % 1.7 Basophils % 0.6 Absolute Neutrophils 6.2 Absolute Lymphocytes 2.0 Absolute Monocytes 0.4 Absolute Eosinophils 0.1 Absolute Basophils 0.1 Sodium 139.5 Potassium 4.3 Chloride 107 Carbon Dioxide 22 Anion Gap 11 BUN 16 Creatinine 0.79 Est GFR ( Amer) > 60 Est GFR (Non-Af Amer) > 60 Glucose 111 H Calcium 10.0 Total Bilirubin 0.6 AST 44 H ALT 57 H Alkaline Phosphatase 78 Total Protein 7.9 Albumin 4.3 Urine Color YELLOW Urine Appearance SLIGHTLY-CLOUDY Urine pH 6.0 Ur Specific [place] 1.009 Urine Protein NEGATIVE Urine Glucose (UA) NEGATIVE Urine Ketones NEGATIVE Urine Blood LARGE H Urine Nitrite NEGATIVE Ur Leukocyte Esterase NEGATIVE Urine WBC (Auto) 3 Urine RBC (Auto) 24 Assessment and Plan - Diagnosis (1) Toxic encephalopathy Is this a current diagnosis for this admission?: Yes Plan: It is likely that she has had a reaction to a medication used for anesthesia for a cystoscopy today at [facility]. She is clearing considerably. For safety she is admitted under obs. We will watch on telel overnight. Utox pos for benzo and opiate and we know she got those for procedure, inclduing versed. She was given a dose of narcan in the ED. Tylenol and ASA neg. She also states she was given a lyrica and a celexa tab for the procedure, we cannot corraborate that. I have suggested that she get the medical record for her safety, to know what she may have responded to. If she does not continue to remain normal I will get the records. CT head was ordered and she has declined that. (2) Type II diabetes mellitus, well controlled Is this a current diagnosis for this admission?: Yes Plan: she is on 2 oral agents at home, I have started bolus short acting insulin for now and diabetic diet. (3) Familial hyperlipidemia Is this a current diagnosis for this admission?: Yes Plan: she uses a low dose of crestor, states she generally has a statin intolerance (4) Bladder injury Is this a current diagnosis for this admission?: Yes Plan: During hysterectomy she had a bladder sling and then another at a later date, she now has baldder damage from that and multiple complications for which she sees a urologist. She had a cystoscopy today for stones, has a little bloodin urine now but is urinating without difficulty. - Time Time Spent with patient: 35 or more minutes Anticipated discharge: Home - Inpatient Certification Based on my medical assessment, after consideration of the patient's comorbidities, presenting symptoms, or acuity I expect that the services needed warrant INPATIENT care.: No I certify that my determination is in accordance with my understanding of Medicare's requirements for reasonable and necessary INPATIENT services [42 CFR 412.3e].: No
[2018-09-23] MEDS ORDERED: PANTOPRAZOLE SODIUM 20 MG TABLET.DR PO SCH (07:00)
[2018-09-23 07:12] LABS: ALANINE AMINOTRANSFERASE 43 U/L (9-52); ALBUMIN 3.7 g/dL (3.5-5.0); ALKALINE PHOSPHATASE 62 U/L (38-126); ASPARTATE AMINO TRANSFERASE 29 U/L (14-36); BILIRUBIN,DIRECT 0.2 mg/dL (0.0-0.4); BILIRUBIN,TOTAL 0.4 mg/dL (0.2-1.3); TOTAL PROTEIN 6.7 g/dL (6.3-8.2)
[2018-09-23 07:13] LABS: ANION GAP 8 (5-19); BLOOD UREA NITROGEN 14 mg/dL (7-20); CARBON DIOXIDE 25 mmol/L (22-30); CHLORIDE 108 mmol/L (98-107); GLUCOSE 192 mg/dL (75-110); POTASSIUM 3.8 mmol/L (3.6-5.0); SODIUM 140.7 mmol/L (137-145)
[2018-09-23] MEDS: INSULIN LISPRO 100 UNIT/ML 3 ML VIAL SUBCUT SCH ×2 (09:43→13:30)
[2018-09-23] MEDS ORDERED: ASPIRIN 81 MG TABLET, CHEWABLE PO SCH (10:00)
[2018-09-23] MEDS ORDERED: LISINOPRIL 5 MG TABLET PO SCH (10:00)
[2018-09-23] MEDS ORDERED: SERTRALINE HCL 50 MG TABLET PO SCH (10:00)
--- NOTE | 2018-09-23 11:04 | RADIOLOGY REPORT (SQ) ---
EXAM DESCRIPTION: CT HEAD WITHOUT COMPLETED DATE/TIME: 09/23/2018 10:51 am REASON FOR STUDY: tingling in face G93.40 ENCEPHALOPATHY, UNSPECIFIED R10.84 GENERALIZED ABDOMINAL PAIN D50.9 IRON DEFICIENCY ANEMIA, UNSPECIFIED COMPARISON: None. TECHNIQUE: Axial images acquired through the brain without intravenous contrast. Images reviewed wi th bone, brain and subdural windows. Additional sagittal and coronal reconstructions were generated. Images stored on PACS. All CT scanners at this facility use dose modulation, iterative reconstruction, and/or weight based d osing when appropriate to reduce radiation dose to as low as reasonably achievable (ALARA). [facility]: Dose Right [facility]: CareDose [facility]: Dose Right [facility]: Teradose 4D [facility]: Smart [employer]! RADIATION DOSE: CT Rad equipment meets quality standard of care and radiation dose reduction techniq ues were employed. CTDIvol: 53.2 mGy. DLP: 991 mGy-cm. mGy. LIMITATIONS: None. FINDINGS: VENTRICLES: Normal size and contour. CEREBRUM: No masses. No hemorrhage. No midline shift. No evidence for acute infarction. Normal gra y/white matter differentiation. No areas of low density in the white matter. CEREBELLUM: No masses. No hemorrhage. No alteration of density. No evidence for acute infarction. EXTRAAXIAL SPACES: No fluid collections. No masses. ORBITS AND GLOBE: No intra- or extraconal masses. Normal contour of globe without masses. CALVARIUM: No fracture. PARANASAL SINUSES: No fluid or mucosal thickening. SOFT TISSUES: No mass or hematoma. OTHER: No other significant finding. IMPRESSION: NORMAL BRAIN CT WITHOUT CONTRAST. EVIDENCE OF ACUTE STROKE: NO. COMMENT: Quality ID # 436: Final reports with documentation of one or more dose reduction techniques (e.g., Automated exposure control, adjustment of the mA and/or kV according to patient size, use of iterative reconstruction technique) TECHNICAL DOCUMENTATION: JOB ID: [id number] [employer]- All Rights Reserved Reading location - IP/workstation name: [email or web address]
--- NOTE | 2018-09-23 13:05 | RADIOLOGY REPORT (SQ) ---
EXAM DESCRIPTION: CT ABD/PELVIS NO ORAL OR IV COMPLETED DATE/TIME: 09/23/2018 10:51 am REASON FOR STUDY: abd pain G93.40 ENCEPHALOPATHY, UNSPECIFIED R10.84 GENERALIZED ABDOMINAL PAIN D5 0.9 IRON DEFICIENCY ANEMIA, UNSPECIFIED COMPARISON: None. TECHNIQUE: CT scan of the abdomen and pelvis performed without intravenous or oral contrast. Images reviewed with lung, soft tissue, and bone windows. Reconstructed coronal and sagittal MPR images revi ewed. All images stored on PACS. All CT scanners at this facility use dose modulation, iterative reconstruction, and/or weight based d osing when appropriate to reduce radiation dose to as low as reasonably achievable (ALARA). [facility]: Dose Right [facility]: CareDose [facility]: Dose Right [facility]: Teradose 4D [facility]: Smart [employer] RADIATION DOSE: CT Rad equipment meets quality standard of care and radiation dose reduction techniq ues were employed. CTDIvol: 7.4 mGy. DLP: 370 mGy-cm.mGy. LIMITATIONS: None. FINDINGS: LOWER CHEST: No significant findings. No nodules or infiltrates. NON-CONTRASTED LIVER, SPLEEN, ADRENALS: Evaluation limited by lack of IV contrast. No identified sign ificant masses. PANCREAS: No masses. No peripancreatic inflammatory changes. GALLBLADDER: Surgically absent. RIGHT KIDNEY AND URETER: No suspicious masses. Assessment limited by lack of IV contrast. No signif icant calcifications. No hydronephrosis or hydroureter. LEFT KIDNEY AND URETER: No suspicious masses. Assessment limited by lack of IV contrast. No signifi cant calcifications. No hydronephrosis or hydroureter. AORTA AND RETROPERITONEUM: No aneurysm. No retroperitoneal masses or adenopathy. BOWEL AND PERITONEAL CAVITY: No obvious masses or inflammatory changes. No free fluid. APPENDIX: Normal. PELVIS, BLADDER, AND ABDOMINAL WALL:Nondependent gas in the urinary bladder consistent with history o f recent cystoscopy. BONES: No acute findings. OTHER: No other significant finding. IMPRESSION: NO SIGNIFICANT OR ACUTE PROCESS IN THE ABDOMEN OR PELVIS. COMMENT: Quality ID # [id number]: Final reports with documentation of one or more dose reduction techniques (e.g., Automated exposure control, adjustment of the mA and/or kV according to patient size, use of iterative reconstruction technique) TECHNICAL DOCUMENTATION: JOB ID: [id number]- All Rights Reserved Reading location - IP/workstation name: [email or web address]
[2018-09-23 13:44] VITALS: BP 116/57
--- NOTE | 2018-09-23 13:53 | PDOC DISCHARGE SUMMARY ---
General - Admit/Disc Date/PCP Admission Date/Primary Care Provider: 09/23/18 00:21 NICHOLAS FUNES PA-C Discharge Date: 09/23/18 - Discharge Diagnosis (1) Toxic encephalopathy Is this a current diagnosis for this admission?: Yes Summary: It is likely that she has had a reaction to a medication used for anesthesia for a cystoscopy today at [facility]. She is clearing considerably. For safety she is admitted under obs. We will watch on telel overnight. Utox pos for benzo and opiate and we know she got those for procedure, inclduing versed. She was given a dose of narcan in the ED. Tylenol and ASA neg. She also states she was given a lyrica and a celexa tab for the procedure, we cannot corraborate that. I have suggested that she get the medical record for her safety, to know what she may have responded to. If she does not continue to remain normal I will get the records. CT head was ordered and she has declined that. 09/[id number]-[facility]-old female admitted for altered mental status/acute encepha. Lopathy patient has a cystoscopy done yesterday at [facility]. Altered mental status may be secondary to anesthesia. No acute events after admission. CT head was negative this morning. Because she has a cystoscopy was done CT abdomen pelvis was done to rule out any perforation and it came back negative. Patient alert and awake oriented communicating very well no focal neurological deficits. Patient is expressing desire to go home. I strongly advise her to follow-up wit h primary care physician in 3-5 days. (2) Type II diabetes mellitus, well controlled Is this a current diagnosis for this admission?: Yes Summary: 09/23/2018-patient has history of type 2 diabetes mellitus. Blood sugar today is 140 and patient is on insulin sliding scale. Patient is advised to resume home medications upon discharge. Diet exercise and complex medications are discussed dietary consult was requested. (3) Bladder injury Is this a current diagnosis for this admission?: Yes Summary: During hysterectomy she had a bladder sling and then another at a later date, she now has baldder damage from that and multiple complications for which she sees a urologist. She had a cystoscopy today for stones, has a little bloodin urine now but is urinating without difficulty. 09/23/2018 patient has history of bladder injury CT abdomen pelvis without cont rast is negative for acute changes. Urinalysis in the emergency room shows small amount of blood on the patient is not concerned about it because she was told about mild hematuria she is going to have on a chronic basis. - Additional Information Resuscitation Status: Full Code Discharge Diet: As Tolerated Discharge Activity: Activity As Tolerated Home Medications: Biotin [Biotin 1 mg Tablet] 1 mg PO DAILY 09/22/18 Glipizide [Glipizide Xl] 2.5 mg PO QHS 09/22/18 Lisinopril [Prinivil] 5 mg PO QAM 09/22/18 Omeprazole 20 mg PO DAILYP PRN 09/22/18 Sertraline HCl [Zoloft 50 mg Tablet] 50 mg PO QAM 09/22/18 Sitagliptin Phosphate [Januvia 50 mg Tablet] 50 mg PO BID 09/22/18 History of Present Illness History of Present Illness: ANA HAHN is a 68 year old female 68 year old woman who had a cystoscopy today at [facility] for bladder stones. She was very groggy today afterwards and was sent home with her daughter. Daughter states she was confused, disinhibited with laughing and crying inappropriately, staring and momentarily non responsive, never with respiratory distress, no obvious weakness or slurred speech. CT head ordered in ED but pt declined study, she is improving but secondary to an acute encephalopathy is admitted under obs for safety. Physical Exam Vital Signs: Temp Pulse Resp BP Pulse Ox 98.6 F 85 16 116/57 L 97 09/23/18 13:38 09/23/18 13:38 09/23/18 13:38 09/23/18 13:38 09/23/18 13:38 Intake & Output 09/22/18 09/23/18 09/24/18 06:59 06:59 06:59 Intake Total 1000 Balance 1000 Weight 72.9 kg General appearance: PRESENT: no acute distress Head exam: PRESENT: atraumatic Eye exam: PRESENT: PERRLA Neck exam: ABSENT: carotid bruit, JVD, lymphadenopathy, thyromegaly Respiratory exam: PRESENT: clear to auscultation uday. ABSENT: rales, rhonchi, wheezes Cardiovascular exam: PRESENT: RRR. ABSENT: diastolic murmur, rubs, systolic murmur Pulses: PRESENT: normal dorsalis pedis pul GI/Abdominal exam: PRESENT: normal bowel sounds, soft. ABSENT: distended, guarding, mass, organolmegaly, rebound, tenderness Extremities exam: PRESENT: full ROM. ABSENT: calf tenderness, clubbing, pedal edema Neurological exam: PRESENT: alert, awake, oriented to person, oriented to place, oriented to time, oriented to situation, CN II-XII grossly intact. ABSENT: motor sensory deficit Psychiatric exam: PRESENT: appropriate affect, normal mood. ABSENT: homicidal ideation, suicidal ideation Results Laboratory Results: 09/22/18 20:40 09/23/18 06:51 09/22/18 09/22/18 09/22/18 20:40 20:40 23:12 WBC 8.8 RBC 4.97 Hgb 13.8 Hct 41.0 MCV 83 MCH 27.8 MCHC 33.6 RDW 15.4 H Plt Count 222 Seg Neutrophils % 70.2 Lymphocytes % 22.7 Monocytes % 4.8 Eosinophils % 1.7 Basophils % 0.6 Absolute Neutrophils 6.2 Absolute Lymphocytes 2.0 Absolute Monocytes 0.4 Absolute Eosinophils 0.1 Absolute Basophils 0.1 Sodium 139.5 Potassium 4.3 Chloride 107 Carbon Dioxide 22 Anion Gap 11 BUN 16 Creatinine 0.79 Est GFR ( Amer) > 60 Est GFR (Non-Af Amer) > 60 Glucose 111 H Calcium 10.0 Magnesium Total Bilirubin 0.6 AST 44 H ALT 57 H Alkaline Phosphatase 78 Total Protein 7.9 Albumin 4.3 Urine Color YELLOW Urine Appearance SLIGHTLY-CLOUDY Urine pH 6.0 Ur Specific [place] 1.009 Urine Protein NEGATIVE Urine Glucose (UA) NEGATIVE Urine Ketones NEGATIVE Urine Blood LARGE H Urine Nitrite NEGATIVE Ur Leukocyte Esterase NEGATIVE Urine WBC (Auto) 3 Urine RBC (Auto) 24 09/23/18 09/23/18 06:51 06:51 WBC RBC Hgb Hct MCV MCH MCHC RDW Plt Count Seg Neutrophils % Lymphocytes % Monocytes % Eosinophils % Basophils % Absolute Neutrophils Absolute Lymphocytes Absolute Monocytes Absolute Eosinophils Absolute Basophils Sodium 140.7 Potassium 3.8 Chloride 108 H Carbon Dioxide 25 Anion Gap 8 BUN 14 Creatinine 0.76 Est GFR ( Amer) > 60 Est GFR (Non-Af Amer) > 60 Glucose 192 H Calcium 9.0 Magnesium 2.0 Total Bilirubin 0.4 AST 29 ALT 43 Alkaline Phosphatase 62 Total Protein 6.7 Albumin 3.7 Urine Color Urine Appearance Urine pH Ur Specific [place] Urine Protein Urine Glucose (UA) Urine Ketones Urine Blood Urine Nitrite Ur Leukocyte Esterase Urine WBC (Auto) Urine RBC (Auto) Impressions: Abdomen/Pelvis CT 09/23/18 00:00 IMPRESSION: NO SIGNIFICANT OR ACUTE PROCESS IN THE ABDOMEN OR PELVIS. Head CT 09/23/18 00:00 IMPRESSION: NORMAL BRAIN CT WITHOUT CONTRAST. EVIDENCE OF ACUTE STROKE: NO. Qualifiers - * PATIENT BEING DISCHARGED WITH ANY OF THE FOLLOWING DIAGNOSIS: No VTE patient discharged on overlapping Therapy?: No Plan Discharge Plan: Patient is going home today Time Spent: Less than 30 Minutes
== END 2018-09-23 14:30 | disposition home or self-care (01) ==
LOC: ER 19:32 → EH 09-23 00:21 → 5 09-23 02:00
PROVIDERS: ADMIT Internal Medicine; ATTEND Internal Medicine
DX: G92 Toxic encephalopathy (principal); T42.4X5A Adverse effect of benzodiazepines, initial encounter; T40.605A Adverse effect of unspecified narcotics, initial encounter; Y92.239 Unspecified place in hospital as the place of occurrence of the external cause; E11.9 Type 2 diabetes mellitus without complications; N99.89 Other postprocedural complications and disorders of genitourinary system; R31.9 Hematuria, unspecified; F41.9 Anxiety disorder, unspecified; E78.49 Other hyperlipidemia; Z90.710 Acquired absence of both cervix and uterus; Z79.899 Other long term (current) drug therapy; Z79.84 Long term (current) use of oral hypoglycemic drugs; Z90.49 Acquired absence of other specified parts of digestive tract
CPT/HCPCS: 99285; 96361; 96374; 36415 ×2; 82962 ×2; 80307 ×4; 83735; 85025; 80076; 80048; 80053; 81001; 70450; 74176; G0378 ×2; A9270; J2310; J7030; J3490

== ENCOUNTER → 2018-10-05 | Outpatient (CLI) | payer MEDICARE, OTHER ==
--- NOTE | 2018-10-05 15:57 | RADIOLOGY REPORT (SQ) ---
EXAM DESCRIPTION: MRI HEAD COMBO COMPLETED DATE/TIME: 10/05/2018 3:43 pm REASON FOR STUDY: R47.01 APHASIA R47.01 APHASIA COMPARISON: None. TECHNIQUE: Multiplanar imaging includes noncontrasted T1, T2, FLAIR, diffusion with ADC map and post gadolinium contrast T1 sequences. Images stored on PACS. CONTRAST TYPE AND DOSE: 10 mL Dotarem. RENAL FUNCTION: Not indicated. ACR Type II contrast agent associated with few, if any, unconfounded cases of NSF LIMITATIONS: None. FINDINGS: ANATOMY: No anomalies. Normal vascular flow voids. Pituitary fossa normal. CSF SPACES: Normal in size and contour. No hemorrhage. CEREBRUM: Sulci and gyri normal in size and contour. Normal white matter signal on FLAIR imaging. No evidence of hemorrhage, mass, or extraaxial fluid collection. No abnormal enhancement post contrast. POSTERIOR FOSSA: No signal alteration. No hemorrhage. No edema, masses, or mass effect. Internal aggie tory canals, cerebellopontine angles, mastoids normal. No enhancing lesions. No abnormal enhancement post contrast. DIFFUSION IMAGING: Negative for acute or subacute infarction. ORBITS: No masses. Globes normal. PARANASAL SINUSES: No fluid levels. Mucosa normal. OTHER: No other significant finding. IMPRESSION: NORMAL MRI OF THE BRAIN WITHOUT AND WITH INTRAVENOUS GADOLINIUM CONTRAST. EVIDENCE OF ACUTE STROKE: NO. TECHNICAL DOCUMENTATION: JOB ID: [id number] [employer]- All Rights Reserved Reading location - IP/workstation name: [email or web address]
== END ==
LOC: RAD 15:12
PROVIDERS: ATTEND Internal Medicine
DX: R47.01 Aphasia (principal)
CPT/HCPCS: 70553; A9576